=== PATIENT | male | born 2005 | race Caucasian/White ===

== ENCOUNTER 2025-07-22 11:47 | Emergency (ER) | payer SELFPAY ==
[~2025-07-22] VITALS: Ht 188 cm; Wt 125.0 kg
[2025-07-22 11:51] VITALS: TEMP 98.5
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
[2025-07-22 12:51] VITALS: BP 118/64; PULSE 81; RESP 15; O2SAT 98
== END 2025-07-22 12:53 | disposition home or self-care (01) ==
LOC: ER 11:48
DX: Z02.89 Encounter for other administrative examinations (principal); V89.2XXA Person injured in unspecified motor-vehicle accident, traffic, initial encounter; Y93.89 Activity, other specified; Y92.89 Other specified places as the place of occurrence of the external cause; Y99.8 Other external cause status
CPT/HCPCS: 99283